=== PATIENT | female | born 1990 | race Caucasian/White ===

== ENCOUNTER 2022-01-03 16:47 | Outpatient (CLI) | payer OTHER ==
[~2022-01-03] VITALS: Ht 160 cm; Wt 81.8 kg
--- NOTE | 2022-01-03 17:02 | NUR ---
Presents to labor and delivery. States hasnt felt baby move for two days. heart monitor on. heart rate at 150 with accelerations noted. Mother at bedside.
[2022-01-03 17:05] VITALS: BP 118/75; PULSE 96
[2022-01-03] MEDS ORDERED: PRENATAL TABLET PO (17:23)
[2022-01-03] MEDS ORDERED: OMEGA-31 SGL PO (17:24)
[2022-01-03] MEDS ORDERED: MAGNESIUM500 MG PO (17:25)
[2022-01-03] MEDS ORDERED: CALCIUM 600MG+D1 TAB PO (17:25)
--- NOTE | 2022-01-03 17:40 | NUR ---
Discharge instructions given to patient. Dismissed to home with mother. Ambulatory, stable, alert.
== END 2022-01-03 17:40 | disposition home or self-care (01) ==
LOC: LDRO 16:47 → LDR 17:26 → LDRO 17:40
DX: O36.8130 Decreased fetal movements, third trimester, not applicable or unspecified (principal); Z3A.37 37 weeks gestation of pregnancy
CPT/HCPCS: OP

== ENCOUNTER 2022-01-27 08:26 | Inpatient (IN) | payer OTHER ==
[~2022-01-27] VITALS: Ht 160 cm; Wt 83.2 kg
[~2022-01-27 08:26] MED LIST: CALCIUM 600MG+D1 TAB PO; MAGNESIUM500 MG PO; OMEGA-31 SGL PO; PRENATAL TABLET PO
[2022-01-28] VITALS (9 sets, daily range): BP systolic 99–122; BP diastolic 52–81; PULSE 77–100; TEMP 98.7
--- NOTE | 2022-01-28 18:50 | NUR ---
1849-Patient ambulates onto unit with spouse. Oriented to LDR2. Patient is instructed to change into gown. Patient denies LOF, VB, or decreased movement. Patient reports no ctx at this time. EFMx2 explained and applied. Vs obtained. Plan of care discussed, patient verbalizes understanding. 1929-IV started per KATIE Velasquez. Blood obtained and sent to lab. IVF started, see EMAR. Assessments completed. Consent forms explained and signed. FT/50/-3. First dose of Cytotec placed at this time.
[2022-01-28 19:57] LABS: BASO # 0.1 K/mm3 (0.0-0.2); BASO % 0.5 % (0.0-2.0); EOS # 0.1 K/mm3 (0.0-0.7); EOS % 1.3 % (0.0-4.0); GRAN # 7.2 K/mm3 (1.4-6.5); GRAN % 72.5 % (42.2-75.2); HEMOGLOBIN 11.7 g/dl (12.5-16.0); LYMPH # 1.8 K/mm3 (1.2-3.4); LYMPH % 17.8 % (20.0-51.0); MEAN CELL VOLUME 90 fl (80.0-100.0); MEAN CORPUSCULAR HEMOGLOBIN 31 pg (27-31); MEAN CORPUSCULAR HGB CONC 34 g/dl (33.0-37.0); MEAN PLATELET VOLUME 9.8 fl (7.4-10.4); MONO # 0.7 K/mm3 (0.1-0.6); MONO % 7.2 % (1.7-9.3); PLATELET COUNT 285 K/mm3 (130-400); RED BLOOD COUNT 3.83 M/mm3 (4.10-5.30); REDCELL DISTRIBUTION WIDTH-CV 12.1 % (11.5-14.5)
[2022-01-28 19:59] LABS: HEMATOCRIT 34.6 % (37.0-47.0)
--- NOTE | 2022-01-28 23:00 | NUR ---
[id number]: Difficulty tracing ctx due to maternal position. This RN at bedside adjusting TOCO.
[2022-01-29] VITALS (48 sets, daily range): BP systolic 81–139; BP diastolic 48–79; PULSE 58–103; TEMP 97.9–98.8
--- NOTE | 2022-01-29 08:30 | NUR ---
AT BEDSIDE. JUAN FT/50/-3, UNABLE TO AROM AT THIS TIME. EDUCATION PROVIDED TO PT ON PLAN OF CARE. PT DENIES FURTHER QUESTIONS OR CONCERNS. NO NEW ORDERS AT THIS TIME.
--- NOTE | 2022-01-29 09:50 | NUR ---
MARI NAVAS AT BEDSIDE FOR EPIDURAL PLACEMENT. PT TO SITTING POSITION ON EDGE OF BED. DIFFICULTY TRACING EFM/TOCO DUE TO MATERNAL POSITIONING. THIS NURSE PALPATING CONTRACTIONS Q1-1.5MIN APART. 0950: SINGLE SHOT PER MARI NAVAS, PT TOLERATED PROCEDURE WELL
--- NOTE | 2022-01-29 11:10 | NUR ---
AT BEDSIDE DISCUSSING CURRENT EFM TRACING/DECELERATIONS WITH PT AND FOB. SVE REMAINS FT/50/-2, UNCHANGED FROM LAST NIGHT. AFTER ALL OPTIONS DISCUSSED, PT REQUESTING TO MOVE FORWARD HAVING A CSECTION. WILL NOTIFY ALL APPROPRIATE TEAM MEMBERS.
--- NOTE | 2022-01-29 12:35 | NUR ---
1235: PT ADMITTED TO PACU TO BEGIN PP RECOVERY FOLLOWING PRIMARY CSECTION DELIVERY OF VIABLE FEMALE INFANT PER WITH ASSIST. FUNDUS FIRM AT UMBILICUS. LOCHIA SCANT, NO CLOTS NOTED. VITAL SIGNS STABLE. PT ALERT AND ORIENTED X4, TALKATIVE, DENIES PAIN OR NEEDS. MORENO PATENT AND DRAINING CLEAR YELLOW URINE. SCD'S TO BLE. 1305: PT DISCHARGED TO PP ROOM AT THIS TIME. FUNDUS REMAINS FIRM AT UMBILICUS, LOCHIA SCANT WITH NO CLOTS NOTED. VITAL SIGNS STABLE THROUGHOUT PACU MONITORING. PT REMAINS FULLY ALERT AND ORIENTED, SKIN TO SKIN WITH UPON DC'ING TO ROOM IN STABLE CONDITION.
--- NOTE | 2022-01-29 17:54 | NUR ---
PT REMAINS IN BED. EPIDURAL CATHETER REMOVED. UNABLE TO RAISE BLE, REPORTS NUMBNESS TO UPPER HALF OF LEGS AND ABDOMEN. VITAL SIGNS STABLE. FUNDUS FIRM AND 2FB BELOW UMBILICUS. LOCHIA SCANT, NO CLOTS NOTED. PT REPORTS MANAGEABLE PAIN LEVEL WITH PO PAIN CONTROL. DENIES FURTHER NEEDS OR CONCERNS AT THIS TIME.
[2022-01-30 04:45] VITALS: BP 101/57; PULSE 66; TEMP 97.6
[2022-01-30 05:51] LABS: HEMATOCRIT 29.9 % (37.0-47.0); HEMOGLOBIN 9.8 g/dl (12.5-16.0)
[2022-01-30 08:15] VITALS: BP 100/59; PULSE 73; TEMP 97.7
--- NOTE | 2022-01-30 16:45 | NUR ---
1528PATIENT CALLED FOR ASSISTANCE WITH BELLY BAND AFTER SHOWER. THIS RN AT BEDSIDE TO ASSIST. UPON ASSESSMENT OF INCISION THERE WAS APPROXIMATELY 1 IN SECTION ON PATIENT'S LEFT SIDE THAT HAD A STEADY OOZE OF BLOOD. REMAINING INCISION CDI. PATIENT ASSISTED TO BED, OOZING AREA CLEANED, 3 STERI-STRIPS PLACED AND ABD PLACED OVER INCISION TO COLLECT ANY EXCESS BLOOD. OOZING NOTED TO SLOW IN THE 10MIN THAT THIS RN WAS IN ROOM HELPING PATIENT. RN TOLD PATIENT THAT SHE WOULD MOST LIKELY BE ABLE TO REMOVE ABD LATER THIS EVENING. PATIENT AND PATIENT'S SPOUSE VERBALIZED UNDERSTANDING. WILL NOTIFY PATIENT'S NURSE OF INCISION ASSESSMENT.
[2022-01-30 17:05] VITALS: BP 104/52; PULSE 61; TEMP 97.4
[2022-01-30 21:15] VITALS: BP 98/66; PULSE 72; TEMP 97.5
[2022-01-31 08:00] VITALS: BP 97/57; PULSE 62; TEMP 98.2
[2022-01-31] MEDS ORDERED: IBU600 MG PO (09:25)
[2022-01-31] MEDS ORDERED: PERCOCET 325 MG1 TA2 PO (09:25)
== END 2022-01-31 12:20 | disposition home or self-care (01) | DRG 788 ==
LOC: LDR → OB 01-28 18:46
PROVIDERS: ADMIT Obstetrics & Gynecology
PROC: 10D00Z1 Extraction of Products of Conception, Low, Open Approach (ICD-10-PCS; principal; 2022-01-29)
PROC: 3E0P7VZ Introduction of Hormone into Female Reproductive, Via Natural or Artificial Opening (ICD-10-PCS; 2022-01-29)
DX: O48.0 Post-term pregnancy (principal); O76 Abnormality in fetal heart rate and rhythm complicating labor and delivery; O34.40 Maternal care for other abnormalities of cervix, unspecified trimester; O43.123 Velamentous insertion of umbilical cord, third trimester; Z37.0 Single live birth; Z3A.41 41 weeks gestation of pregnancy; Z86.16 Personal history of COVID-19; Z88.2 Allergy status to sulfonamides
CPT/HCPCS: J0690; J1100; J1885; J2405; J2590; J7120